=== PATIENT | male | born 1930 | race Caucasian/White ===

== ENCOUNTER 2018-03-23 13:16 | Outpatient (CLI) | payer MEDICARE, OTHER ==
[~2018-03-23 13:16] MED LIST: ALPR-623 PO; ASPI-1265 PO; FISH1CAP15 PO; ISOS60TA4 PO; METO25TA6 PO; NITR0.4T51 SL; OMEP-84 PO; PRAV40TA65 PO; RANO500T3 PO
== END 2018-03-23 23:59 | disposition home or self-care (01) ==
LOC: CARD DIAG 13:16
PROVIDERS: ATTEND Internal Medicine Cardiovascular Disease
DX: I08.0 Rheumatic disorders of both mitral and aortic valves (principal); I11.0 Hypertensive heart disease with heart failure; I50.9 Heart failure, unspecified; Z87.891 Personal history of nicotine dependence
CPT/HCPCS: 93306

== ENCOUNTER 2019-01-14 13:26 | Day surgery (SDC) | payer MEDICARE, OTHER, MEDICAID ==
[~2019-01-14] VITALS: Ht 167.6 cm; Wt 86.4 kg
[2019-01-14 13:40] VITALS: BP 153/63
[2019-01-14] MEDS ORDERED: MIDAZolam 5mg/5ml vial ONE (14:19)
[2019-01-14] MEDS ORDERED: fentaNYL/PF 50MCG/1 ML 2ML syringe ONE (14:19)
[2019-01-14] MEDS ORDERED: AMLO2.5T4 PO (14:40)
[2019-01-14] MEDS ORDERED: DOCU100C41 PO (14:42)
[2019-01-14] MEDS ORDERED: NA P133E4 RC (14:43)
[2019-01-14] MEDS ORDERED: BISA10SU60 RC (14:43)
[2019-01-14] MEDS ORDERED: LISI-604 PO (14:45)
[2019-01-14] MEDS ORDERED: GABA-530 PO (14:45)
[2019-01-14] MEDS ORDERED: POLY17PO10 PO (14:46)
[2019-01-14] MEDS ORDERED: MULT1TAB74 PO (14:47)
[2019-01-14] MEDS ORDERED: CALC355O3 PO (14:48)
[2019-01-14] MEDS ORDERED: HYDR-4383 PO (14:49)
[2019-01-14] MEDS ORDERED: SENN-162 PO (14:49)
[2019-01-14] MEDS ORDERED: ZOL50T PO (14:50)
[2019-01-14] MEDS ORDERED: ACET-2119 PO (14:50)
[2019-01-14 15:08] VITALS: BP 123/52
[2019-01-14 15:18] VITALS: BP 129/67
[2019-01-14 15:28] VITALS: BP 134/60
[2019-01-14 15:38] VITALS: BP 139/59
== END 2019-01-14 15:58 | disposition home or self-care (01) ==
LOC: GI LAB 13:26
PROVIDERS: ATTEND Internal Medicine Gastroenterology
DX: D12.2 Benign neoplasm of ascending colon (principal); D12.5 Benign neoplasm of sigmoid colon; K64.8 Other hemorrhoids; Z98.0 Intestinal bypass and anastomosis status
CPT/HCPCS: 45380; 45385; 99153; G0500; J2250; J3010; J7030; 99152; A4620